=== PATIENT | female | born 1960 | race Caucasian/White ===

== ENCOUNTER 2019-12-19 00:36 | Emergency (ER) | payer SELFPAY ==
[2019-12-19 00:45] VITALS: BMI 34.2
[2019-12-19] MEDS ORDERED: SODIUM CHLORIDE 0.9% 500 ML INFUS.BAG IV ONE ×2 (01:19→02:31)
--- NOTE | 2019-12-19 01:33 | PDOC ---
History of Present Illness - General Chief Complaint: Blood Pressure Problem Stated Complaint: BLOOD SUGAR HIGH Time Seen by Provider: 12/19/19 00:46 - History of Present Illness Initial Comments: Pt is a 59yo F with PMH DM2, HTN who presents with high blood sugar on home reading. Pt is visiting from [place] and has been here for 1 month, without taking her diabetes medication (pill, she does not remember name) that she left at home. States that over the last 3 days has had polyuria, polydipsia, headache, fatigue, nausea, lightheadedness and palpitations. Denies abdominal pain, vomiting, weight loss, weakness, change in vision. Denies f/c, chest pain, SOB. Denies sick contacts. PCP: not in [place] PMH: HTN, DM Meds: losartan, cannot remember name of diabetes medication All: NKDA Past History - Medical History Allergies/Adverse Reactions: Allergies Allergy/AdvReac Type Severity Reaction Status Date / Time No Known Allergies Allergy Verified 12/19/19 00:44 - Psycho-Social/Smoking History Smoking History: Never smoked Have you smoked in the past 12 months: No Information on smoking cessation initiated: No - Substance Abuse Hx (Audit-C & DAST Scrn) How often the patient has a drink containing alcohol: Never Score: In Men: 4 or > Positive; In Women: 3 or > Positive: 0 Screen Result (Pos requires Nsg. Audit-10AR): Negative In the last yr the pt used illegal drug/Rx for NonMed reason: No Score: Yes response is considered Positive: 0 Screen Result (Positive result requires Nsg. DAST-10): Negative Review of Systems - Review of Systems Comments:: CONSTITUTIONAL:reports generalized weakness/fatigue, denies fever, chills, loss of appetite HEENT:denies rhinorrhea, nasal congestion, sore throat, ear pain, eye pain, visual Changes CARDIOVASCULAR:reports palpitations, denies chest pain, syncope, irregular hea rt rate, lightheadedness, peripheral edema RESPIRATORY:reports shortness of breath, denies cough, wheezing, hemoptysis GASTROINTESTINAL: reports nausea; denies abdominal pain, vomiting, diarrhea, con stipation, melena, hematochezia GENITOURINARY:denies dysuria, flank pain MUSCULOSKELETAL:denies myalgia, arthralgia HEMATOLOGIC/IMMUNOLOGIC:denies easy bleeding, easy bruising ENDOCRINE: reports polyuria, polydipsia, denies unexplained weight gain, unexplained weight loss NEUROLOGIC:reports headache, denies loss of consciousness, focal weakness or paresthesias, dizziness, unsteady gait, mental status changes, bladder or bowel incontinence SKIN:denies rash, itching, pallor *Physical Exam - Vital Signs Last Vital Signs Temp Pulse Resp BP Pulse Ox 99.3 F 103 H 20 145/98 97 12/19/19 00:44 12/19/19 00:44 12/19/19 00:44 12/19/19 00:44 12/19/19 00:44 - Physical Exam General: awake, alert, fully oriented, in no acute distress, well developed, well nourished Head: normocephalic, atraumatic Eyes: PERRL, EOMI, anicteric sclera, conjunctiva clear ENT: hearing grossly normal, nares patent, oropharynx clear without exudates. No nasal congestion Moist mucous membranes Neck: supple, normal ROM Lung: equal breath sounds b/l, CTA b/l, no crackles, wheezes; no distress, speaks full sentences Heart: RRR, normal S1, S2, no murmurs, rubs, gallops Abdomen: soft, non tender, normoactive bowel sounds, no guarding, rebound, masses Extremities: normal ROM, no edema, no erythema or tenderness, DP/PT pulses 2+ and symmetric, no clubbing, cyanosis Neuro: CN2-12 grossly intact, moves all extremities, normal speech, normal gait, sensation intact Skin: warm, dry, no rashes or lesions noted ED Treatment Course - LABORATORY CBC & Chemistry Diagram: 12/19/19 01:24 12/19/19 01:24 - ADDITIONAL ORDERS Additional order review: Laboratory Results 12/19/19 00:52 POC Glucometer 432 12/19/19 00:52 POC Glucometer 432 - RADIOLOGY Radiology Studies Ordered: Category Date Time Status CHEST PA & LAT [RAD] Stat Radiology 12/19/19 01:18 Ordered Medical Decision Making - Medical Decision Making Pt is a 59yo F with PMH HTN, DM, who presents with polyuria, polydipsia, and headaches. Vital Signs Temp Pulse Resp BP Pulse Ox 99.3 F 103 H 20 145/98 97 12/19/19 00:44 12/19/19 00:44 12/19/19 00:44 12/19/19 00:44 12/19/19 00:44 DDx: hyperglycemia, HHS, DKA, infection, CHERYL Plan: FSG, CBC, CMP, VBG, serum ketones, UA/UCx, cardiac profile, CXR, 1L NS UA with bacteria, glucosuria CBC: no anemia, no leukocytosis CMP: electrolytes WNL, CHERYL Laboratory Last Values WBC 8.6 K/mm3 (4.0-10.0) 12/19/19 01:24 RBC 4.45 M/mm3 (3.60-5.2) 12/19/19 01:24 Hgb 14.0 GM/dL (10.7-15.3) 12/19/19 01:24 Hct 41.8 % (32.4-45.2) 12/19/19 01:24 MCV 94.0 fl (80-96) 12/19/19 01:24 MCH 31.4 pg (25.7-33.7) 12/19/19 01:24 MCHC 33.4 g/dl (32.0-36.0) 12/19/19 01:24 RDW 13.4 % (11.6-15.6) 12/19/19 01:24 Plt Count 191 K/MM3 (134-434) 12/19/19 01:24 MPV 9.9 fl (7.5-11.1) 12/19/19 01:24 Absolute Neuts (auto) 4.9 K/mm3 (1.5-8.0) 12/19/19 01:24 Neutrophils % 57.6 % (42.8-82.8) 12/19/19 01:24 Lymphocytes % 33.1 % (8-40) 12/19/19 01:24 Monocytes % 7.1 % (3.8-10.2) 12/19/19 01:24 Eosinophils % 1.5 % (0-4.5) 12/19/19 01:24 Basophils % 0.7 % (0-2.0) 12/19/19 01:24 Nucleated RBC % 0 % (0-0) 12/19/19 01:24 VBG pH 7.354 (7.310-7.410) 12/19/19 01:24 POC VBG pCO2 46.0 mmHg (38-52) 12/19/19 01:24 POC VBG pO2 23.7 mmHg (28-48) L 12/19/19 01:24 VBG HCO3 25.1 mmol/L (23-29) 12/19/19 01:24 VBG O2 Sat (Nata) 39.1 % (70-80) L 12/19/19 01:24 VBG Base Excess -0.9 mmol/L (-2-2) 12/19/19 01:24 Sodium 136 mmol/L (136-145) 12/19/19 01:24 Potassium 4.6 mmol/L (3.5-5.1) 12/19/19 01:24 Chloride 100 mmol/L (98-107) 12/19/19 01:24 Carbon Dioxide 27 mmol/L (21-32) 12/19/19 01:24 Anion Gap 8 MMOL/L (8-16) 12/19/19 01:24 BUN 25.7 mg/dL (7-18) H 12/19/19 01:24 Creatinine 1.5 mg/dL (0.55-1.3) H 12/19/19 01:24 Est GFR (CKD-EPI)AfAm 43.43 12/19/19 01:24 Est GFR (CKD-EPI)NonAf 37.48 12/19/19 01:24 POC Glucometer 432 UNITS (80-120) 12/19/19 00:52 Calcium 9.2 mg/dL (8.5-10.1) 12/19/19 01:24 Total Bilirubin 0.6 mg/dL (0.2-1) 12/19/19 01:24 AST 51 U/L (15-37) H 12/19/19 01:24 ALT 59 U/L (13-61) 12/19/19 01:24 Alkaline Phosphatase 120 U/L (45-117) H 12/19/19 01:24 Creatine Kinase 82 U/L (26-192) 12/19/19 01:24 Troponin I < 0.02 ng/ml (0.00-0.05) 12/19/19 01:24 Total Protein 7.8 g/dl (6.4-8.2) 12/19/19 01:24 Albumin 3.6 g/dl (3.4-5.0) 12/19/19 01:24 Beta-Hydroxybutyrate 1.3 mg/dL (0.2-2.8) 12/19/19 01:24 Urine Color Yellow 12/19/19 01:24 Urine Appearance Clear 12/19/19 01:24 Urine pH 6.5 (5.0-8.0) 12/19/19 01:24 Ur Specific [place] 1.026 (1.010-1.035) 12/19/19 01:24 Urine Protein Negative (NEGATIVE) 12/19/19 01:24 Urine Glucose (UA) 3+ (NEGATIVE) H 12/19/19 01:24 Urine Ketones Negative (NEGATIVE) 12/19/19 01:24 Urine Blood Negative (NEGATIVE) 12/19/19 01:24 Urine Nitrite Negative (NEGATIVE) 12/19/19 01:24 Urine Bilirubin Negative (NEGATIVE) 12/19/19 01:24 Urine Urobilinogen 1.0 mg/dL (0.2-1.0) 12/19/19 01:24 Ur Leukocyte Esterase Trace (NEGATIVE) 12/19/19 01:24 Urine WBC (Auto) 123 /uL (0-25.8) 12/19/19 01:24 Urine RBC (Auto) 3 /uL (0-23.9) 12/19/19 01:24 Urine Casts (Auto) 1 /uL (0-3.1) 12/19/19 01:24 U Epithel Cells (Auto) 21 /uL (0-25.1) 12/19/19 01:24 Urine Bacteria (Auto) 1141 /uL (0-1359) 12/19/19 01:24 Pt signed out to Dr. Margarito Tejada Discharge - Discharge Information Problems reviewed: Yes Clinical Impression/Diagnosis: Hyperglycemia - Follow up/Referral - Patient Discharge Instructions - Post Discharge Activity
[2019-12-19 01:46] LABS: VENOUS BASE EXCESS -0.9 mmol/L (-2-2); VENOUS O2 SATURATION 39.1 % (70-80); VENOUS PH 7.354 (7.310-7.410)
[2019-12-19 01:50] LABS: BASO % 0.7 % (0-2.0); EOS % 1.5 % (0-4.5); HEMATOCRIT 41.8 % (32.4-45.2); LYMPH % 33.1 % (8-40); MCH 31.4 pg (25.7-33.7); MCHC 33.4 g/dl (32.0-36.0); MEAN PLT VOLUME 9.9 fl (7.5-11.1); MONO % 7.1 % (3.8-10.2); NEUT % 57.6 % (42.8-82.8); PLATELET COUNT 191 K/MM3 (134-434); RBC 4.45 M/mm3 (3.60-5.2); RDW 13.4 % (11.6-15.6); WHITE BLOOD COUNT 8.6 K/mm3 (4.0-10.0)
--- NOTE | 2019-12-19 01:51 | PDOC ---
Documentation entered by Geo Francis SCRIBE, acting as scribe for Haydee Olivares MD. Haydee Olivares MD: This documentation has been prepared by the dengibe, Geo Francis SCRIBE, under my direction and personally reviewed by me in its entirety. I confirm that the documentation accurately reflects all work, treatment, procedures, and medical decision making performed by me. Attending Attestation - Resident Resident Name: SawyerDebra - ED Attending Attestation I have performed the following: I have examined & evaluated the patient, The case was reviewed & discussed with the resident, I agree w/resident's findings & plan, Exceptions are as noted - HPI HPI: 12/19/19 01:44 The patient is a 59 year old female with a significant past medical history of DM and HTN who presents to the ED with high blood sugar (too high for machine to read) on home reading tonight. The patient has been in the [place] (from [place]) for one month without her diabetes medication. She endorses headache, palpi tations, fatigue, lightheadedness, nausea, polyuria, and polydipsia that began three days ago. The patient denies chest pain and shortness of breath. Denies fever, chills, abdominal pain, or vomiting. Denies any other symptoms. PCP: not in [place] Allergies: NKDA - Physicial Exam PE: 12/19/19 00:50 GENERAL: Awake, alert, and fully oriented, in no acute distress. Obese HEAD: No signs of trauma EYES: PERRLA, EOMI, sclera anicteric, conjunctiva clear ENT: Auricles normal inspection, hearing grossly normal, nares patent, oropharynx clear without exudates. Moist mucosa NECK: Normal ROM, supple, no lymphadenopathy, JVD, or masses LUNGS: Breath sounds equal, clear to auscultation bilaterally. No wheezes, and no crackles HEART: Regular rate and rhythm, normal S1 and S2, no murmurs, rubs or gallops ABDOMEN: Soft, nontender, normoactive bowel sounds. No guarding, no rebound. No masses EXTREMITIES: Normal range of motion, no edema. No clubbing or cyanosis. No cords, erythema, or tenderness NEUROLOGICAL: Cranial nerves II through XII grossly intact. Normal speech, normal gait. Motor and sensation intact. SKIN: Warm, Dry, normal turgor, no rashes or lesions noted. - Medical Decision Making Pt with hyperglycemia, off her meds for the past month, not sure what meds she takes at home in [place]. In light of decreased renal function, will start her on januvia and arrange f/u in the [facility] IM clinic. Discharge - Discharge Information Problems reviewed: Yes Clinical Impression/Diagnosis: Hyperglycemia, CHERYL (acute kidney injury) Condition: Improved Disposition: HOME - Additional Discharge Information Prescriptions: Sitagliptin Phosphate [Januvia] 100 mg PO DAILY #60 tablet - Follow up/Referral - Patient Discharge Instructions Patient Printed Discharge Instructions: DI for Hyperglycemia -- Adult Additional Instructions: Take the prescribed Sitagliptin as directed Drink lots of water Follow up with your primary care doctor --- [place] la Sitagliptina prescrita segn las indicaciones. [address] Rajesh un seguimiento con [place] mdico de atencin primaria. Print Language: BURUNDIAN - Post Discharge Activity
[2019-12-19 01:57] LABS: EPI CELLS 21 /uL (0-25.1); HYALINE CASTS 1 /uL (0-3.1); PH,URINE 6.5 (5.0-8.0); URINE APPEARANCE CLEAR; URINE BACTERIA 1141 /uL (0-1359); URINE BILIRUBIN NEGATIVE (NEGATIVE); URINE COLOR YELLOW; URINE GLUCOSE (UA) 3+ (NEGATIVE); URINE KETONE NEGATIVE (NEGATIVE); URINE LEUK ESTERASE TRACE (NEGATIVE); URINE NITRITE NEGATIVE (NEGATIVE); URINE PROTEIN NEGATIVE (NEGATIVE); URINE RBC 3 /uL (0-23.9); URINE WBC 123 /uL (0-25.8)
[2019-12-19 02:20] LABS: ALBUMIN 3.6 g/dl (3.4-5.0); BILIRUBIN,TOTAL 0.6 mg/dL (0.2-1); BLOOD UREA NITROGEN 25.7 mg/dL (7-18); CALCIUM 9.2 mg/dL (8.5-10.1); CREATININE 1.5 mg/dL (0.55-1.3); POTASSIUM 4.6 mmol/L (3.5-5.1); TOT PROT 7.8 g/dl (6.4-8.2)
[2019-12-19] MEDS ORDERED: INSULIN REGULAR HUMAN 100 UNITS/ML *VIAL IVPUSH ONE ×2 (02:31→02:36)
--- NOTE | 2019-12-19 03:25 | PDOC ---
*Physical Exam - Vital Signs Last Vital Signs Temp Pulse Resp BP Pulse Ox 99.3 F 103 H 20 145/98 97 12/19/19 00:44 12/19/19 00:44 12/19/19 00:44 12/19/19 00:44 12/19/19 00:44 ED Treatment Course - LABORATORY CBC & Chemistry Diagram: 12/19/19 01:24 12/19/19 01:24 - ADDITIONAL ORDERS Additional order review: Laboratory Results 12/19/19 12/19/19 12/19/19 02:35 01:24 01:24 VBG pH POC VBG pCO2 POC VBG pO2 VBG HCO3 VBG O2 Sat (Nata) VBG Base Excess Sodium 136 Potassium 4.6 Chloride 100 Carbon Dioxide 27 Anion Gap 8 BUN 25.7 H Creatinine 1.5 H Est GFR (CKD-EPI)AfAm 43.43 Est GFR (CKD-EPI)NonAf 37.48 POC Glucometer 420 Random Glucose 481 H* Calcium 9.2 Total Bilirubin 0.6 AST 51 H ALT 59 Alkaline Phosphatase 120 H Creatine Kinase 82 Troponin I < 0.02 Total Protein 7.8 Albumin 3.6 Beta-Hydroxybutyrate 1.3 Urine Color Urine Appearance Urine pH Ur Specific [place] Urine Protein Urine Glucose (UA) Urine Ketones Urine Blood Urine Nitrite Urine Bilirubin Urine Urobilinogen Ur Leukocyte Esterase Urine WBC (Auto) Urine RBC (Auto) Urine Casts (Auto) U Epithel Cells (Auto) Urine Bacteria (Auto) 12/19/19 12/19/19 12/19/19 01:24 01:24 00:52 VBG pH 7.354 POC VBG pCO2 46.0 POC VBG pO2 23.7 L VBG HCO3 25.1 VBG O2 Sat (Nata) 39.1 L VBG Base Excess -0.9 Sodium Potassium Chloride Carbon Dioxide Anion Gap BUN Creatinine Est GFR (CKD-EPI)AfAm Est GFR (CKD-EPI)NonAf POC Glucometer 432 Random Glucose Calcium Total Bilirubin AST ALT Alkaline Phosphatase Creatine Kinase Troponin I Total Protein Albumin Beta-Hydroxybutyrate Urine Color Yellow Urine Appearance Clear Urine pH 6.5 Ur Specific [place] 1.026 Urine Protein Negative Urine Glucose (UA) 3+ H Urine Ketones Negative Urine Blood Negative Urine Nitrite Negative Urine Bilirubin Negative Urine Urobilinogen 1.0 Ur Leukocyte Esterase Trace Urine WBC (Auto) 123 Urine RBC (Auto) 3 Urine Casts (Auto) 1 U Epithel Cells (Auto) 21 Urine Bacteria (Auto) 1141 12/19/19 12/19/19 12/19/19 02:35 01:24 00:52 RBC 4.45 MCV 94.0 MCHC 33.4 RDW 13.4 MPV 9.9 Neutrophils % 57.6 Lymphocytes % 33.1 Monocytes % 7.1 Eosinophils % 1.5 Basophils % 0.7 POC Glucometer 420 432 - Medications Given in the ED: ED Medications Discontinued Medications Generic Name Dose Route Start Last Admin Trade Name Freq PRN Reason Stop Dose Admin Insulin Human Regular 4 units 12/19/19 02:31 12/19/19 02:58 Novolin R Vial *For Ivpush Or Iv Drip Only* IVPUSH 12/19/19 02:32 Not Given ONCE ONE Insulin Human Regular 8 units 12/19/19 02:36 12/19/19 02:41 Novolin R Vial *For Ivpush Or Iv Drip Only* IVPUSH 12/19/19 02:37 8 units ONCE ONE Administration Sodium Chloride 1,000 ml 12/19/19 01:19 12/19/19 01:36 Normal Saline - IV 12/19/19 01:20 1,000 ml ONCE ONE Administration Sodium Chloride 1,000 ml 12/19/19 02:31 12/19/19 02:47 Normal Saline - IV 12/19/19 02:32 1,000 ml ONCE ONE Administration Medical Decision Making - Medical Decision Making 12/19/19 03:24 Signed out from day team Pt has CHERYL vs CKD Cr 1.5, hyperglycemia BG 481. Not DKA (no acidosis) Given 2L NS, 8 insulin. Repeat BG 154 DC home w sitagliptin prescription, PCP f/u Discharge - Discharge Information Problems reviewed: Yes Clinical Impression/Diagnosis: Hyperglycemia, CHERYL (acute kidney injury) Condition: Improved Disposition: HOME - Additional Discharge Information Prescriptions: Sitagliptin Phosphate [Januvia] 100 mg PO DAILY #60 tablet - Follow up/Referral - Patient Discharge Instructions Patient Printed Discharge Instructions: DI for Hyperglycemia -- Adult Additional Instructions: Take the prescribed Sitagliptin as directed Drink lots of water Follow up with your primary care doctor --- [place] la Sitagliptina prescrita segn las indicaciones. [address]esh un seguimiento con [place] mdico de atencin primaria. Print Language: PORTUGUESE - Post Discharge Activity
[2019-12-19 03:44] VITALS: BP 148/88; PULSE 84; TEMP 98.8
--- NOTE | 2019-12-19 17:23 | EKG ---
Test Reason : Blood Pressure : / mmHG Vent. Rate : 083 BPM Atrial Rate : 083 BPM P-R Int : 124 ms QRS Dur : 082 ms QT Int : 394 ms P-R-T Axes : 048 007 012 degrees QTc Int : 462 ms NORMAL SINUS RHYTHM NORMAL ECG NO PREVIOUS ECGS AVAILABLE Confirmed by MD Jasmina, Lacho ([id number]) on 12/19/2019 5:22:53 PM Referred By: Confirmed By:Lacho Freedman MD
== END 2019-12-19 03:44 | disposition home or self-care (01) ==
LOC: JER 00:36
PROC: 3E013VG Introduction of Insulin into Subcutaneous Tissue, Percutaneous Approach (ICD-10-PCS; principal; 2019-12-19)
DX: R73.9 Hyperglycemia, unspecified (principal)
CPT/HCPCS: 36415; 71046-TC-FY; 80053; 81003; 82010; 82550; 82803; 82962; 84484; 85025; 87086; 93005; 93010; 99285-25